=== PATIENT | female | born 1965 | race African-American/Black ===

== ENCOUNTER 2019-05-03 11:42 | Emergency (ER) | payer OTHER ==
[~2019-05-03] VITALS: Ht 167.6 cm; Wt 100.0 kg
[2019-05-03 12:53] LABS: CHLORIDE 106 mEq/L (98-107)
[2019-05-03 12:54] LABS: BASOPHILS % 0.6 % (0.0-2.0); EOSINOPHILS % 1.3 % (0.0-5.0); HEMATOCRIT. 41.8 % (36.0-48.0); HEMOGLOBIN. 13.8 g/dL (12.0-16.0); LYMPHOCYTES % 21.2 % (20.0-50.0); MEAN CORPUSCULAR HEMOGLOBIN 27.2 pg (28.0-32.0); MEAN CORPUSCULAR VOLUME 82.6 fL (81.0-99.0); MONOCYTES % 7.8 % (2.0-8.0); NEUTROPHILS % 69.1 % (40.0-76.0); PLATELET 186 x1000/uL (130-400); RED BLOOD CELL COUNT 5.06 mill/uL (4.2-5.4); RED CELL DISTRIBUTION WIDTH 15.6 % (11.6-14.6)
[2019-05-03] MEDS ORDERED: IOHEXOL-350 100 ML BOTTLE ONE (14:30)
[2019-05-03] MEDS ORDERED: KETOROLAC 30MG/ML VIAL IV ONE (14:45)
[2019-05-03 17:00] VITALS: BP 133/75
== END 2019-05-03 17:08 | disposition home or self-care (01) ==
LOC: ER 11:42
DX: R07.89 Other chest pain (principal); M26.609 Unspecified temporomandibular joint disorder, unspecified side; R51 Headache; Z88.0 Allergy status to penicillin; Z98.890 Other specified postprocedural states
CPT/HCPCS: 36415; 71275; 80053; 83880; 84484; 85025; 85379; 93005; 96374; 99284; J1885; Q9967